=== PATIENT | female | born 1980 | race Caucasian/White ===

== ENCOUNTER → 2017-04-01 | Outpatient (CLI) | payer BC ==
--- NOTE | 2017-04-01 17:58 | US ---
EXAMINATION TYPE: US venous doppler duplex LE RT DATE OF EXAM: 04/01/2017 5:45 PM COMPARISON: NONE CLINICAL HISTORY: RLE Pain M79.604. SIDE PERFORMED: Right TECHNIQUE: The lower extremity deep venous system is examined utilizing real time linear array sonog ellyn with graded compression, doppler sonography and color-flow sonography. VESSELS IMAGED: External Iliac Vein (EIV) Common Femoral Vein Deep Femoral Vein Greater Saphenous Vein * Femoral Vein Popliteal Vein Small Saphenous Vein * Proximal Calf Veins (* superficial vessels) Right Leg: Negative for DVT Probable Pal's cyst visualized measuring 4.6 x 1.7 x 2.4 cm IMPRESSION: Popliteal cyst is noted. No evidence of deep venous thrombosis.
== END | disposition home or self-care (01) ==
LOC: RADUSMAIN 17:18
PROVIDERS: ATTEND Family Medicine
DX: M71.21 Synovial cyst of popliteal space [Baker], right knee (principal)

== ENCOUNTER → 2023-06-18 | Outpatient (CLI) | payer BC ==
--- NOTE | 2023-06-18 13:43 | US ---
EXAMINATION TYPE: US venous doppler duplex LE DATE OF EXAM: 06/18/2023 1:33 PM COMPARISON: Right lower extremity venous ultrasound 04/01/2017 CLINICAL INDICATION: Female, 43 years old with history of M79.89 SOFT TISSUE DISORDER; Chronic leg sw elling but has been worse lately. No injury. Patient states he swells at night and in morning is it better. No redness. SIDE PERFORMED: Bilateral. TECHNIQUE: The lower extremity deep venous system is examined utilizing real time linear array sonog ellyn with graded compression, doppler sonography and color-flow sonography. VESSELS IMAGED: Common Femoral Vein Deep Femoral Vein Greater Saphenous Vein * Femoral Vein Popliteal Vein Small Saphenous Vein * Proximal Calf Veins (* superficial vessels) Grayscale, color doppler, spectral doppler imaging performed of the deep veins of the lower extremiti es. There is normal flow, compressibility, vascular waveforms. Right Leg: Negative for DVT Left Leg: Negative for DVT IMPRESSION: No deep venous thrombosis of the bilateral lower extremities.
== END | disposition home or self-care (01) ==
LOC: RADUSWWP 13:02
PROVIDERS: ATTEND Family Medicine
DX: M79.89 Other specified soft tissue disorders (principal)
CPT/HCPCS: 93970